=== PATIENT | female | born 1995 | race Caucasian/White ===

== ENCOUNTER 2018-07-21 09:57 | Emergency (ER) | payer OTHER ==
[2018-07-21 10:03] VITALS: O2SAT 99
--- NOTE | 2018-07-21 10:30 | C.PDOC ---
History Of Present Illness 23 y/o female, who is 6 weeks , comes in stating that she woke up this morning with abdominal cramping and vaginal bleeding. LMP is 06/10/18. Patient does not know when she started having these symptoms and came to ER shortly after. Patient complains of some nausea but no fever or other symptoms. States this is her first , . Time Seen by Provider: 07/21/18 10:13 Chief Complaint (Nursing): Female Genitourinary History Per: Patient History/Exam Limitations: no limitations Onset/Duration Of Symptoms: Hrs Current Symptoms Are (Timing): Still Present Past Medical History Reviewed: Historical Data, Nursing Documentation, Vital Signs Vital Signs: Last Vital Signs Temp 97.7 F 07/21/18 10:00 Pulse 71 07/21/18 10:00 Resp 18 07/21/18 10:00 BP 121/72 07/21/18 10:00 Pulse Ox 99 07/21/18 10:00 Family History: States: No Known Family Hx - Social History Hx Alcohol Use: No Hx Substance Use: No - Immunization History Hx Tetanus Toxoid Vaccination: Yes Hx Influenza Vaccination: Yes Hx Pneumococcal Vaccination: Yes Review Of Systems Constitutional: Negative for: Fever, Chills Cardiovascular: Negative for: Chest Pain Respiratory: Negative for: Shortness of Breath Gastrointestinal: Positive for: Nausea, Other (Abdominal cramping). Negative for: Vomiting, Diarrhea Genitourinary: Positive for: Vaginal Bleeding. Negative for: Dysuria Neurological: Negative for: Weakness, Numbness Physical Exam - Physical Exam Appears: Non-toxic, No Acute Distress Skin: Warm, Dry Head: Atraumatic, Normacephalic Eye(s): bilateral: Normal Inspection Oral Mucosa: Moist Neck: Supple Chest: Symmetrical Cardiovascular: Rhythm Regular, No Murmur Respiratory: Normal Breath Sounds, No Rales, No Rhonchi, No Wheezing Gastrointestinal/Abdominal: Soft, No Tenderness Extremity: Bilateral: Atraumatic, Normal Color And Temperature, Normal ROM Neurological/Psych: Oriented x3, Normal Speech ED Course And Treatment - Laboratory Results Result Diagrams: 07/21/18 10:33 O2 Sat by Pulse Oximetry: 99 (RA) Pulse Ox Interpretation: Normal - CT Scan/US Obstetrics US Other Rad Studies (CT/US): Read By Radiologist, Radiology Report Reviewed CT/US Interpretation: Findings: Uterus measures approximately 10.1 x 4.6 x 6.1 cm. Anteverted. Cervix length measures approximately 3.6 cm. There is a single intrauterine fetus present. The gestational sac measures 1.5 cm and is compatible with a gestational age of 5 weeks 5 days. The crown-rump length measures 0.3 cm and is compatible with a gestational age of 5 weeks 6 days. There is heart motion which measured 98.4 BPM. The right ovary measures 3.1 x 1.6 x 3.0 cm. The left ovary measures 3.6 x 1.7 x 2.8 cm. Blood flow was demonstrated to both ovaries. Impression: Live single intrauterine with estimated gestational age 5 weeks 6 days by crown-rump length calculation. heart rate 98.4 bpm. Advise an anomaly screen at 16-18 weeks gestational age Medical Decision Making Medical Decision Making: Plan: --Bloodwork --Obstetrics US --UA U/S showed live IUP. Patient Rh positive. No UTI noted. Hgb stable. Results discussed with patient, she is stable for discharge home. 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 Return to the ED for any new or worsening symptoms. Disposition - Disposition Disposition: HOME/ ROUTINE Disposition Time: 12:44 Condition: STABLE Additional Instructions: LEYDI COLEMAN, thank you for letting us take care of you today. Your provider was Margy Garcia MD and you were treated for /BLEEDING. The emergency medical care you received today was directed at your acute symptoms. If you were prescribed any medication, please fill it and take as directed. It may take several days for your symptoms to resolve. Return to the Emergency Department if your symptoms worsen, do not improve, or if you have any other problems. Please contact your doctor or call one of the physicians/clinics you have been referred to that are listed on the Patient Visit Information form that is included in your discharge packet. Bring any paperwork you were given at discharge with you along with any medications you are taking to your follow up visit. Our treatment cannot replace ongoing medical care by a primary care provider outside of the emergency department. Thank you for [facility] to be part of your care today. If you had an X-Ray or CT scan: A Radiologist will review the ED reading if any change in treatment is needed we will contact you. If you had a blood, urine, or wound culture: It will take several days for the results, if any change in treatment is needed we will contact you. If you had an STI test: It will take 48 hours for the results. Please call after 1 week if you have not heard back. Instructions: Threatened Miscarriage (DC) Forms: Work/School/Gym Excuse, [facility] (Gabonese) - Clinical Impression Clinical Impression: Threatened - Scribe Statement The provider has reviewed the documentation as recorded by the Silvia Soler Provider Attestation: All medical record entries made by the Silvia were at my direction and p ersonally dictated by me. I have reviewed the chart and agree that the record accurately reflects my personal performance of the history, physical exam, medical decision making, and the department course for this patient. I have also personally directed, reviewed, and agree with the discharge instructions and disposition.
[2018-07-21 10:43] LABS: BASO % 0.5 % (0.0-2.0); EOS # 0.1 K/uL (0.0-0.7); EOS % 2.9 % (0.0-4.0); LYMPH # 0.7 K/uL (1.0-4.3); LYMPH % 16.1 % (20.0-40.0); MEAN CELL VOLUME 87.9 fL (81.0-99.0); MEAN CORPUSCULAR HEMOGLOBIN 29.7 pg (27.0-31.0); MEAN CORPUSCULAR HGB CONC 33.8 g/dL (33.0-37.0); MEAN PLATELET VOLUME 9.7 fL (7.2-11.7); MONO # 0.5 K/uL (0.0-0.8); MONO % 10.4 % (0.0-10.0); NEUT # 3.2 K/uL (1.8-7.0); NEUT % 70.1 % (50.0-75.0); RBC 4.05 Mil/uL (3.80-5.20); RED CELL DISTRIBUTION WIDTH 13.9 % (11.5-14.5); WHITE BLOOD COUNT 4.5 K/uL (4.8-10.8)
[2018-07-21 11:57] VITALS: BP 112/72; PULSE 59; RESP 20; TEMP 98.5
--- NOTE | 2018-07-21 12:02 | US ---
Indication: vaginal bleeding, 6w Comparison: None available Technique: Real-time transabdominal pelvic ultrasound was performed. In addition a transvaginal pelvic ultrasound was necessary to better depict pelvic anatomy. Findings: Uterus measures approximately 10.1 x 4.6 x 6.1 cm. Anteverted. Cervix length measures approximately 3.6 cm. There is a single intrauterine fetus present. The gestational sac measures 1.5 cm and is compatible with a gestational age of 5 weeks 5 days. The crown-rump length measures 0.3 cm and is compatible with a gestational age of 5 weeks 6 days. There is heart motion which measured 98.4 BPM. The right ovary measures 3.1 x 1.6 x 3.0 cm. The left ovary measures 3.6 x 1.7 x 2.8 cm. Blood flow was demonstrated to both ovaries. Impression: Live single intrauterine with estimated gestational age 5 weeks 6 days by crown-rump length calculation. heart rate 98.4 bpm. Advise an anomaly screen at 16-18 weeks gestational age
[2018-07-21 12:18] LABS: SQUAMOUS EPITHIAL < 1 /hpf (0-5); URINE BILIRUBIN NEGATIVE (NEGATIVE); URINE BLOOD 1+ (NEGATIVE); URINE CLARITY Clear (Clear); URINE COLOR Colorless (YELLOW); URINE GLUCOSE (UA) NORMAL (Normal); URINE LEUKOCYTE ESTERASE NEG Leu/uL (Negative); URINE PROTEIN NEGATIVE (NEGATIVE); URINE UROBILINOGEN NORMAL mg/dL (0.2-1.0)
== END 2018-07-21 12:48 | disposition home or self-care (01) ==
LOC: C.ER 09:57
DX: O20.0 Threatened abortion (principal); Z3A.01 Less than 8 weeks gestation of pregnancy